=== PATIENT | male | born 1970 | race Caucasian/White ===

== ENCOUNTER 2018-04-18 12:45 | Emergency (ER) | payer MEDICAID ==
[~2018-04-18] VITALS: Ht 182.9 cm; Wt 95.3 kg
--- NOTE | 2018-04-18 13:04 | NUR ---
is at bedside doing the MSE.
[2018-04-18] MEDS ORDERED: TDAP DIPH,PERTUSS,TET VAC/PF 0.5 ML DISP.SYRIN IM ONE (13:11)
[2018-04-18] MEDS ORDERED: CEFAZOLIN 1 G VIAL ONE (13:11)
[2018-04-18] MEDS: TDAP DIPH,PERTUSS,TET VAC/PF 0.5 ML DISP.SYRIN IM ONE (13:17)
[2018-04-18] MEDS ORDERED: ONDANSETRON 4 MG/2 ML VIAL ONE ×2 (13:22→15:10)
[2018-04-18] MEDS ORDERED: MORPHINE SULFATE 4 MG/1 ML DISP.SYRIN ONE (13:22)
[2018-04-18] MEDS: CEFAZOLIN 1 G in IV DEXTROSE 5% 50 ML IV ONE (13:28)
[2018-04-18] MEDS: ONDANSETRON IV *ER 4 MG/2 ML VIAL IV ONE ×2 (13:28→15:12)
[2018-04-18] MEDS: MORPHINE SULFATE 4 MG/1 ML DISP.SYRIN IV ONE (13:32)
--- NOTE | 2018-04-18 13:46 | NUR ---
Patient is resting comfortably on gurney while using his personal electronic device.
[2018-04-18] MEDS: LIDOCAINE HCL 1% 20 ML VIAL IJ ONE (13:55)
--- NOTE | 2018-04-18 13:56 | NUR ---
Patient moved to ER bed 2 for suturing purposes by .
[2018-04-18] MEDS ORDERED: NEOMY/BACITRA/POLYMYXIN B OINT UD PACKET TP ONE (15:07)
[2018-04-18] MEDS ORDERED: FENTANYL CITRATE 100 MCG/2 ML AMPUL ONE (15:10)
[2018-04-18] MEDS: FENTANYL CITRATE 100 MCG/2 ML AMPUL IV ONE (15:13)
[2018-04-18] MEDS: NEOMY/BACITRA/POLYMYXIN B OINT UD PACKET TP ONE (15:17)
--- NOTE | 2018-04-18 15:56 | NUR ---
Crutches dispensed. Pt instructed on proper use of crutches. Patient able to demonstrate correct use of crutches. Patient discharged to home in stable conditon. Written and verbal after care instructions given to patient and spouse. Patient and spouse verbalized understanding of instructions.
== END 2018-04-18 16:00 | disposition home or self-care (01) ==
LOC: ER 12:45
DX: S91.012A Laceration without foreign body, left ankle, initial encounter (principal); W23.0XXA Caught, crushed, jammed, or pinched between moving objects, initial encounter; Y93.89 Activity, other specified; Y92.89 Other specified places as the place of occurrence of the external cause; Y99.8 Other external cause status
CPT/HCPCS: 12001; 73610; 90471; 90715; 96365; 96375; 96376; 99283; J0690; J2270; J2405 ×2; J3010; J3490; J7060; A4217; A4663

== ENCOUNTER 2018-04-19 14:32 | Emergency (ER) | payer MEDICAID ==
[~2018-04-19] VITALS: Ht 182.9 cm; Wt 95.3 kg
--- NOTE | 2018-04-19 14:50 | NUR ---
the splint on the left foot removed, cleansed the area with ns and placed borderesd dressing followed by michael wrap per md order. Addendum: 04/19/18 at 1502 by CHIP no sign of infection.
--- NOTE | 2018-04-19 15:01 | NUR ---
Patient discharged to home in stable conditon. Written and verbal after care instructions given. Patient verbalizes understanding of instructions.pt using own crutches, accompanied by .
== END 2018-04-19 15:04 | disposition home or self-care (01) ==
LOC: ER 14:32
DX: S81.812D Laceration without foreign body, left lower leg, subsequent encounter (principal); W23.0XXD Caught, crushed, jammed, or pinched between moving objects, subsequent encounter
CPT/HCPCS: A4663

== ENCOUNTER 2018-04-28 19:47 | Emergency (ER) | payer MEDICAID ==
[~2018-04-28] VITALS: Ht 188 cm; Wt 93.0 kg
[2018-04-28] MEDS ORDERED: HYDROCODONE-ACETAMIN 10-325 MG (19:57)
[2018-04-28] MEDS ORDERED: IBUP-1957 PO (19:58)
--- NOTE | 2018-04-28 20:00 | NUR ---
Pt. ambulated into ED on cruthches accompanied by female w/ tea room manager for suture removal of laceration to anterior L ankle sufferred 10 days ago while moving [employer] instrument, sutures were placed here in the ED 10 days prior, wound looks well approximated w/ slight ecchymosis - no s/s infection - no warmth/purulence/pus/drainage, sutures intact, denies excessive pain in the area
--- NOTE | 2018-04-28 20:05 | NUR ---
in w/ pt. for MSE and suture removal
[2018-04-28] MEDS ORDERED: NEOMY/BACITRA/POLYMYXIN B OINT UD PACKET TP ONE ×2 (20:10→20:30)
--- NOTE | 2018-04-28 20:15 | NUR ---
abx. ointment applied, wound dressed, CMS intact
--- NOTE | 2018-04-28 20:23 | NUR ---
Patient discharged to home in stable conditon. Written and verbal after care instructions given. Patient verbalizes understanding of instructions. Pt. d/c per MD order, d/c paper signed, all belongings w/ pt., ID band removed, ambulated out of ED w/ female cosmetics machine operator on cruthches, NAD, left in private vehicle,
== END 2018-04-28 20:25 | disposition home or self-care (01) ==
LOC: ER 19:48
DX: S91.012D Laceration without foreign body, left ankle, subsequent encounter (principal); Z79.1 Long term (current) use of non-steroidal anti-inflammatories (NSAID); Z79.891 Long term (current) use of opiate analgesic; X58.XXXD Exposure to other specified factors, subsequent encounter
CPT/HCPCS: A4663

== ENCOUNTER 2018-07-17 15:40 | Emergency (ER) | payer MEDICAID ==
[~2018-07-17] VITALS: Ht 185.4 cm; Wt 90.7 kg
[~2018-07-17 15:40] MED LIST: HYDROCODONE-ACETAMIN 10-325 MG; IBUP-1957 PO
--- NOTE | 2018-07-17 15:54 | NUR ---
PAM TAPIA AT BEDSIDE FOR MSE.
--- NOTE | 2018-07-17 16:33 | NUR ---
SUPERVISOR RESPIRATORY AT BEDSIDE.
--- NOTE | 2018-07-17 16:38 | NUR ---
US TECH AT BEDSIDE.
[2018-07-17 16:49] LABS: BASOPHILS # (AUTO) 0.1 K/uL (0.0-8.0); BASOPHILS % (AUTO) 1.4 % (0.0-2.0); EOSINOPHILS # (AUTO) 0.1 K/uL (0.0-0.7); EOSINOPHILS % (AUTO) 1.1 % (0.0-7.0); HEMATOCRIT 43.8 % (36.7-47.1); LYMPHOCYTES # (AUTO) 2.3 K/uL (20.0-40.0); LYMPHOCYTES % (AUTO) 29.3 % (20.5-51.5); MEAN CORPUSCULAR HEMOGLOBIN 30.3 uug (23.8-33.4); MEAN CORPUSCULAR HGB CONC 34 g/dL (32.5-36.3); MEAN CORPUSCULAR VOLUME 88.4 fL (73.0-96.2); MONOCYTES # (AUTO) 0.5 K/uL (2.0-10.0); MONOCYTES % (AUTO) 6.4 % (0.0-11.0); NEUTROPHILS # (AUTO) 4.9 K/uL (1.8-8.9); NEUTROPHILS % (AUTO) 61.8 % (38.5-71.5); PLATELET COUNT (AUTO) 107 K/uL (152-348); RED BLOOD CELL COUNT(AUTO) 4.96 MIL/uL (4.06-5.63)
[2018-07-17 17:03] LABS: BILIRUBIN,DIRECT 0.1 mg/dL (0.0-0.2); BILIRUBIN,TOTAL 0.4 mg/dL (0.2-1.0); CREATININE 1.2 mg/dL (0.6-1.3); TOTAL PROTEIN, SERUM 6.9 g/dL (6.4-8.2)
--- NOTE | 2018-07-17 18:14 | NUR ---
PAM TAPIA AT BEDSIDE FOR PT UPDATE.
[2018-07-17] MEDS ORDERED: NEOMY/BACITRA/POLYMYXIN B OINT UD PACKET TP ONE (18:30)
[2018-07-17 18:33] VITALS: BP 144/89
--- NOTE | 2018-07-17 18:33 | NUR ---
Patient discharged to home in stable conditon. Written and verbal after care instructions given. Patient verbalizes understanding of instructions. ALL BELONGINGS W/ PT. PT SLF-AMBULATED W/O DIFFICULTY.
== END 2018-07-17 18:34 | disposition home or self-care (01) ==
LOC: ER 15:42
DX: S97.02XA Crushing injury of left ankle, initial encounter (principal); L97.329 Non-pressure chronic ulcer of left ankle with unspecified severity; Z79.1 Long term (current) use of non-steroidal anti-inflammatories (NSAID); Z79.899 Other long term (current) drug therapy; W22.01XA Walked into wall, initial encounter; Y93.89 Activity, other specified; Y92.89 Other specified places as the place of occurrence of the external cause; Y99.8 Other external cause status
CPT/HCPCS: 36415; 70030-TC; 73610; 83605; 85025; 87040; A4663

== ENCOUNTER 2018-07-27 12:20 | Emergency (ER) | payer MEDICAID ==
[~2018-07-27] VITALS: Ht 185.4 cm; Wt 86.2 kg
[2018-07-27 13:27] LABS: BASOPHILS # (AUTO) 0.1 K/uL (0.0-8.0); BASOPHILS % (AUTO) 0.9 % (0.0-2.0); EOSINOPHILS # (AUTO) 0.1 K/uL (0.0-0.7); EOSINOPHILS % (AUTO) 2.1 % (0.0-7.0); HEMATOCRIT 47.3 % (36.7-47.1); HEMOGLOBIN 16.2 g/dL (12.5-16.3); LYMPHOCYTES # (AUTO) 1.7 K/uL (20.0-40.0); LYMPHOCYTES % (AUTO) 25.6 % (20.5-51.5); MEAN CORPUSCULAR HEMOGLOBIN 30.5 uug (23.8-33.4); MEAN CORPUSCULAR HGB CONC 34 g/dL (32.5-36.3); MONOCYTES # (AUTO) 0.6 K/uL (2.0-10.0); MONOCYTES % (AUTO) 8.4 % (0.0-11.0); NEUTROPHILS # (AUTO) 4.2 K/uL (1.8-8.9); PLATELET COUNT (AUTO) 105 K/uL (152-348); RED BLOOD CELL COUNT(AUTO) 5.32 MIL/uL (4.06-5.63); WHITE BLOOD COUNT (AUTO) 6.7 K/uL (3.6-10.2)
--- NOTE | 2018-07-27 13:47 | NUR ---
Patient discharged to home in stable conditon & steady gait. Written and verbal after care instructions given to patient and family. Patient and family verbalized understanding of instructions.
== END 2018-07-27 13:48 | disposition home or self-care (01) ==
LOC: ER 12:21
DX: J06.9 Acute upper respiratory infection, unspecified (principal); Z79.1 Long term (current) use of non-steroidal anti-inflammatories (NSAID); Z79.899 Other long term (current) drug therapy
CPT/HCPCS: 36415; 71045; 85025; A4663

== ENCOUNTER 2023-08-19 13:21 | Emergency (ER) | payer MEDICAID ==
[~2023-08-19] VITALS: Ht 188 cm; Wt 90.7 kg
[2023-08-19] MEDS ORDERED: MAGN296S70 PO (14:23)
[2023-08-19] MEDS ORDERED: LACT10SO58 PO (14:23)
[2023-08-19 14:43] VITALS: BP 115/72; O2SAT 99
== END 2023-08-19 14:44 | disposition home or self-care (01) ==
LOC: ER 13:22
DX: K59.00 Constipation, unspecified (principal); Z98.890 Other specified postprocedural states; Z79.899 Other long term (current) drug therapy; Z60.2 Problems related to living alone
CPT/HCPCS: 74018; A4606; A4663